=== PATIENT | male | born 1995 | race Caucasian/White ===

== ENCOUNTER 2023-10-07 11:02 | Emergency (ER) | payer OTHER ==
[2023-10-07 11:30] VITALS: O2SAT 98
[2023-10-07 11:46] LABS: BASOPHILS % (AUTO) 0.6 %; EOSINOPHILS % (AUTO) 0.6 %; HCT - HEMATOCRIT 47.8 % (42.0-52.0); HGB - HEMOGLOBIN 15.9 g/dL (14.0-18.0); LYMPHOCYTES # (AUTO) 1.8 10^3/uL (1.5-3.5); LYMPHOCYTES % (AUTO) 27.6 %; MEAN CORPUSCULAR HEMOGLOBIN 29.1 pg (27.0-31.0); MEAN CORPUSCULAR HGB CONC 33.3 g/dL (32.0-36.0); MEAN CORPUSCULAR VOLUME 87.4 fL (80.0-94.0); MEAN PLATELET VOLUME 9.5 fL (7.4-11.4); MONOCYTES # (AUTO) 0.5 10^3/uL (0.0-1.0); MONOCYTES % (AUTO) 8.5 %; NEUTROPHILS % (AUTO) 62.5 %; PLT - PLATELET COUNT 244 10^3/uL (130-450); RED BLOOD COUNT 5.47 10^6/uL (4.70-6.10); RED CELL DISTRIBUTION WIDTH 12.3 % (12.0-15.0); WHITE BLOOD COUNT 6.3 x10^3/uL (4.8-10.8)
[2023-10-07 12:07] LABS: ALBUMIN 5.1 g/dL (3.2-5.5); ALBUMIN/GLOBULIN RATIO 2.1 (1.0-2.2); BILIRUBIN,TOTAL 0.7 mg/dL (0.2-1.0); CALCIUM 9.8 mg/dL (8.5-10.3); CREATININE 1.1 mg/dL (0.6-1.3); POTASSIUM 3.9 mmol/L (3.5-4.5); TOTAL PROTEIN 7.5 g/dL (6.4-8.9)
[2023-10-07 12:10] LABS: TROPONIN I HIGH SENSITIVITY 2.3 ng/L (2.3-19.7)
--- NOTE | 2023-10-07 12:27 | XRAY Report ---
PROCEDURE: Chest 1 View X-Ray INDICATIONS: Chest pain TECHNIQUE: One view of the chest was acquired. COMPARISON: None FINDINGS: Surgical changes and devices: None. Lungs and pleura: No pleural effusions or pneumothorax. Lungs are clear. Mediastinum: Mediastinal contours appear normal. Heart size is normal. Bones and chest wall: No suspicious bony lesions. Overlying soft tissues appear unremarkable. IMPRESSION: No acute cardiopulmonary findings Reviewed by: Marcello Stephen MD on 10/07/2023 11:25 AM [facility] Approved by: Marcello Stephen MD on 10/07/2023 11:25 AM [facility] Station ID: [id number]
[2023-10-07 12:56] VITALS: BP 153/110
--- NOTE | 2023-10-07 12:56 | ED Physician Documentation ---
History of Present Illness - Stated complaint Stated Complaint: IRREGULAR HR - Chief complaint Chief Complaint: Cardiac - History obtained from History obtained from: Patient - Additonal information Additional information: 28-year-old male presents for intermittent fluttering sensation in his chest. 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 He states that he underwent stress test, echocardiogram, Holter monitoring for several days, full panel of labs. He was diagnosed with PACs. No medications initiated. He states that he was told that if these get worse that he should come to the ER. Patient denies chest pain, shortness of breath, leg swelling, any other complaints at this time. Review of Systems Constitutional: denies: Fever, Chills Cardiac: reports: Palpitations. denies: Chest pain / pressure, Calf pain Respiratory: denies: Dyspnea, Cough, Wheezing GI: denies: Abdominal Pain, Nausea, Vomiting : denies: Dysuria, Frequency, Hesitancy Skin: denies: Rash, Lesions, Abrasion (s) Musculoskeletal: denies: Extremity pain, Joint pain, Extremity swelling PD PAST MEDICAL HISTORY - Past Medical History Past Medical History: Yes GI: Hiatal hernia - Past Surgical History Past Surgical History: No - Present Medications Home Medications: Ambulatory Orders Medication Instructions Recorded Confirmed Metoprolol Succinate [Toprol Xl] 25 mg PO DAILY #30 tablet 10/07/23 - Allergies Allergies/Adverse Reactions: Allergies Allergy/AdvReac Type Severity Reaction Status Date / Time No Known Drug Allergies Allergy Verified 10/07/23 11:27 - Social History Does the pt smoke?: No Smoking Status: Never smoker PD ED PE NORMAL - Vitals Vital signs reviewed: Yes - General General: Alert and oriented X 3, No acute distress, Well developed/nourished - HEENT HEENT: Atraumatic - Neck Neck: Supple, no meningeal sign - Cardiac Cardiac: RRR, Strong equal pulses - Respiratory Respiratory: No respiratory distress, Clear bilaterally - Abdomen Abdomen: Soft, Non tender, Non distended - Derm Derm: Normal color, Warm and dry, No rash - Extremities Extremities: No deformity, No tenderness to palpate, Normal ROM s pain, No edema - Neuro Neuro: Alert and oriented X 3, 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0 Sodium 139 Potassium 3.9 Chloride 104 Carbon Dioxide 31 Anion Gap 4.0 L BUN 10 Creatinine 1.1 Estimated GFR (MDRD) 80 L Glucose 89 Calcium 9.8 Total Bilirubin 0.7 AST 16 ALT 21 Alkaline Phosphatase 73 Troponin I High Sens 2.3 Total Protein 7.5 Albumin 5.1 Globulin 2.4 Albumin/Globulin Ratio 2.1 Lipase 22 TSH 1.91 PD Medical Decision Making - ED course Complexity details: reviewed results, re-evaluated patient, considered differential, d/w patient ED course: Well-appearing patient with worsening of palpitations. Comprehensive work-up 3 months ago was significant only for PACs, no other findings per patient report, these records are not currently available. Repeat laboratory work here is within normal limits, no acute abnormalities identified. EKG is normal sinus rhythm, no arrhythmias identified. Patient requested to be discharged "as soon as possible" and did not want to stay for monitoring and observation, stating "I have things I need to do". Will trial low dose of metoprolol to see if that help s his palpitations. Emphasized need for cardiology follow up. Departure - Departure Disposition: 01 Home, Self Care Clinical Impression: Palpitations Condition: Stable Instructions: ED Palpitations Prescriptions: Metoprolol Succinate [Toprol Xl] 25 mg PO DAILY #30 tablet Comments: FOLLOW UP WITH CARDIOLOGY. YOU MAY START WITH 12.5MG OF METOPROLOL DAILY TO SEE IF IT HELPS YOUR PALPITATIONS. Forms: PCP List Discharge Date/Time: 10/07/23 12:58
== END 2023-10-07 12:58 | disposition home or self-care (01) ==
LOC: ED 11:02
DX: R00.2 Palpitations (principal)
CPT/HCPCS: 36415; 80053; 83690; 84443; 84484; 85025; 93005; 99283; 99284